=== PATIENT | female | born 1945 | race Caucasian/White ===

== ENCOUNTER 2019-12-16 19:40 | Inpatient (IN) ==
[2019-12-16] MEDS ORDERED: IOPAMIDOL 100 ML BOTTLE IV ONE (19:41)
[2019-12-16] MEDS ORDERED: 0.9 % SODIUM CHLORIDE 500 ML IV ONE (20:09)
[2019-12-16] MEDS ORDERED: ONDANSETRON 4 MG/2 ML VIAL IV ONE (20:09)
--- NOTE | 2019-12-16 20:19 | Emergency Department Note ---
General Adult HPI - General Chief complaint: Nausea/Vomiting/Diarrhea Stated complaint: nausea vomiting Time Seen by Provider: 12/16/19 20:02 Source: patient Mode of arrival: ambulatory Limitations: no limitations - History of Present Illness HPI Narrative: Patient presents emergency department for nausea, vomiting, epigastric abdominal pain that started yesterday. She reports she has had minimal diarrhea. Low- grade temperature at home of 99 orally. Epigastric discomfort is described as dull. She had a colonoscopy about a week ago which she reports was normal. No other complaints. - Related Data Home Medications Medication Instructions Recorded Confirmed Aspirin [Aspirin EC] 81 mg PO DAILY 12/16/19 12/16/19 Atorvastatin [Lipitor] 20 mg PO HS 12/16/19 12/16/19 Carvedilol [Coreg] 6.25 mg PO DAILY 12/16/19 12/16/19 Estrogens, Conjugated [Premarin] 0.625 mg PO DAILY 12/16/19 12/16/19 Furosemide [Lasix] 40 mg PO DAILY 12/16/19 12/16/19 Hydrochlorothiazide [Oretic] 25 mg PO DAILY 12/16/19 12/16/19 Insulin Aspart [Novolog] 0 unit SQ ACHS 12/16/19 12/16/19 Insulin Degludec [Tresiba] 28 unit SQ DAILY 12/16/19 12/16/19 Levothyroxine Sodium [Synthroid] 112 mcg PO DAILY 12/16/19 12/16/19 Losartan [Cozaar] 100 mg PO DAILY 12/16/19 12/16/19 Multivit-Min/Iron/Folic Acid/K 1 tab PO DAILY 12/16/19 12/16/19 [Adults Multivitamin Tablet] Omeprazole 40 mg PO DAILY 12/16/19 12/16/19 Potassium Chloride [Kdur] 20 meq PO DAILY 12/16/19 12/16/19 Allergies Allergy/AdvReac Type Severity Reaction Status Date / Time insulin lispro Allergy Swelling Verified 12/16/19 19:44 [From Humalog U-100 Insulin] amlodipine AdvReac Hypotension Verified 12/16/19 19:44 latex AdvReac Rash Verified 12/16/19 19:44 Review of Systems Review of Systems: As above, all other system reviewed and negative. Past Medical History - Past Medical History [facility] Narrative: Cataracts, coronary artery disease, hypertension, GERD, diabetes, ovarian cancer - Social History smoking status: Former smoker Physical Exam Limitations: no limitations General appearance: alert Head: atraumatic, normocephalic Eye: Present: normal appearance, PERRL, EOMI ENT: Present: normal exam, mucous membranes dry Neck: Present: normal inspection Abdominal: Present: soft, other (Epigastric tenderness palpation, no rebound or guarding.). Absent: distention Extremities: Present: normal inspection Neurological: Present: alert, oriented X3, CN II-XII intact. Absent: motor sensory deficit Psychiatric: Present: normal affect Skin: Present: warm Course Vital Signs Temperature 98.2 F 12/16/19 19:53 Pulse Rate 72 12/16/19 19:53 Respiratory Rate 16 12/16/19 19:53 Blood Pressure 206/80 12/16/19 19:53 Pulse Oximetry (%) 99 12/16/19 19:53 Temperature 98.2 F 12/16/19 19:53 Pulse Rate 72 12/16/19 19:53 Respiratory Rate 16 12/16/19 19:53 Blood Pressure 206/80 12/16/19 19:53 Pulse Oximetry (%) 99 12/16/19 19:53 Medical Decision Making - [facility] Narrative Medical decision making narrative: Emergency department course: Labs reviewed as per the electronic medical record, liver function tests and CBC are pending. CT abdomen pelvis pending at time of dictation. Patient is hydrated IV fluids, medicated with Zofran. She is not taking any of her antihypertensive medication today due to nausea and vomiting. Will provide these to her when her nausea is under control. Patient is further care is signed over to Dr. River oncoming emergency department physician. Impression: Epigastric abdominal pain, nausea and vomiting Plan: As above - Lab Data Result diagrams: 12/16/19 20:20 Lab Results 12/16/19 Range/Units 20:20 POC Hct 38.0 (36.0-48.0) % POC Sodium 131 L (133-145) mmol/L POC Potassium 3.9 (3.3-5.1) mmol/L POC Chloride 96 (96-108) mmol/L POC Total CO2 29 (22-30) mmol/L POC BUN 15 (8-23) mg/dl POC Creatinine 1.0 (0.6-1.1) mg/dl POC Glucose 118 H (70-105) mg/dL POC WB Ioniz Calcium 1.16 (1.16-1.32) mmol/L Disposition Pt seen by SENIOR OCCUPATIONAL THERAPIST/PA only: No Clinical Impression: Abdominal pain, Vomiting Disposition: Still a Patient Referrals: Jose Soria DO [Primary Care Provider] -
[2019-12-16 20:27] LABS: POC Blood Urea Nitrogen 15 mg/dl (8-23); POC CO2 29 mmol/L (22-30); POC Calcium, Ionized 1.16 mmol/L (1.16-1.32); POC Chloride 96 mmol/L (96-108); POC Glucose, Random 118 mg/dL (70-105); POC Potassium 3.9 mmol/L (3.3-5.1); POC Sodium 131 mmol/L (133-145)
[2019-12-16 21:08] LABS: Basophils # (Auto) 0.02 K/mcL (0.00-0.30); Basophils % (Auto) 0.2 % (0.0-2.0); Eosinophils # (Auto) 0.01 K/mcL (0.00-0.70); Eosinophils % (Auto) 0.1 % (0.0-7.0); Granulocytes % (Auto) 84.7 % (38.0-78.0); Hematocrit 35.8 % (34.1-44.9); Hemoglobin 11.8 g/dL (11.2-15.7); Lymphocytes # (Auto) 1.11 K/mcL (1.50-4.80); Lymphocytes % (Auto) 10.4 % (15.5-49.0); Mean Cell Volume 76.8 fL (80.0-100.0); Mean Platelet Volume 11.2 fL (7.4-10.4); Monocytes # (Auto) 0.49 K/mcL (0.10-0.90); Monocytes % (Auto) 4.6 % (1.0-12.0); Platelet Count 301 K/mcL (140-440); RBC 4.66 M/mcL (3.59-5.38); Red Cell Distribution Width 14.9 % (11.5-14.5); WBC 10.7 K/mcL (4.50-11.00)
[2019-12-16] MEDS ORDERED: CARVEDILOL 6.25 MG TABLET PO ONE (21:15)
[2019-12-16] MEDS ORDERED: LOSARTAN 50 MG TABLET PO ONE (21:15)
[2019-12-16] MEDS ORDERED: HYDROCHLOROTHIAZIDE 25 MG TABLET PO ONE (21:15)
--- NOTE | 2019-12-16 21:18 | Emergency Department Note ---
Nausea/Vomiting/Diarrhea HPI - General Chief complaint: Nausea/Vomiting/Diarrhea Stated complaint: nausea vomiting Time Seen by Provider: 12/16/19 20:02 Source: patient Mode of arrival: ambulatory Limitations: no limitations - History of Present Illness HPI Narrative: Patient is signed out to me at shift change by Dr. Moody. I reviewed his note - Related Data Home Medications Medication Instructions Recorded Confirmed Aspirin [Aspirin EC] 81 mg PO DAILY 12/16/19 12/16/19 Atorvastatin [Lipitor] 20 mg PO HS 12/16/19 12/16/19 Carvedilol [Coreg] 6.25 mg PO DAILY 12/16/19 12/16/19 Estrogens, Conjugated [Premarin] 0.625 mg PO DAILY 12/16/19 12/16/19 Furosemide [Lasix] 40 mg PO DAILY 12/16/19 12/16/19 Hydrochlorothiazide [Oretic] 25 mg PO DAILY 12/16/19 12/16/19 Insulin Aspart [Novolog] 0 unit SQ ACHS 12/16/19 12/16/19 Insulin Degludec [Tresiba] 28 unit SQ DAILY 12/16/19 12/16/19 Levothyroxine Sodium [Synthroid] 112 mcg PO DAILY 12/16/19 12/16/19 Losartan [Cozaar] 100 mg PO DAILY 12/16/19 12/16/19 Multivit-Min/Iron/Folic Acid/K 1 tab PO DAILY 12/16/19 12/16/19 [Adults Multivitamin Tablet] Omeprazole 40 mg PO DAILY 12/16/19 12/16/19 Potassium Chloride [Kdur] 20 meq PO DAILY 12/16/19 12/16/19 Allergies Allergy/AdvReac Type Severity Reaction Status Date / Time insulin lispro Allergy Swelling Verified 12/16/19 19:44 [From Humalog U-100 Insulin] amlodipine AdvReac Hypotension Verified 12/16/19 19:44 latex AdvReac Rash Verified 12/16/19 19:44 Past Medical History - Social History smoking status: Former smoker Physical Exam Limitations: no limitations General appearance: alert Course Vital Signs Temperature 98.2 F 12/16/19 19:53 Pulse Rate 72 12/16/19 19:53 Respiratory Rate 16 12/16/19 19:53 Blood Pressure 206/80 12/16/19 19:53 Pulse Oximetry (%) 99 12/16/19 19:53 Temperature 98.2 F 12/16/19 19:53 Pulse Rate 71 12/16/19 20:31 Respiratory Rate 16 12/16/19 19:53 Blood Pressure 197/87 12/16/19 21:16 Pulse Oximetry (%) 94 12/16/19 20:31 Nausea/Vomiting/Diarrhea - Lab Data Lab results reviewed: Yes I reviewed the patient's lab results. Result diagrams: 12/16/19 20:20 Lab Results 12/16/19 12/16/19 Range/Units 20:20 20:20 WBC 10.7 (4.50-11.00) K/mcL RBC 4.66 (3.59-5.38) M/mcL Hgb 11.8 (11.2-15.7) g/dL Hct 35.8 (34.1-44.9) % POC Hct 38.0 (36.0-48.0) % MCV 76.8 L (80.0-100.0) fL MCH 25.3 L (26.0-34.0) pg MCHC 33.0 (31.0-36.0) g/dL RDW 14.9 H (11.5-14.5) % Plt Count 301 (140-440) K/mcL MPV 11.2 H (7.4-10.4) fL Gran % 84.7 H (38.0-78.0) % Lymph % (Auto) 10.4 L (15.5-49.0) % [place] % (Auto) 4.6 (1.0-12.0) % Eos % (Auto) 0.1 (0.0-7.0) % Baso % (Auto) 0.2 (0.0-2.0) % Gran # 9.08 H (1.80-8.00) K/mcL Lymph # (Auto) 1.11 L (1.50-4.80) K/mcL [place] # (Auto) 0.49 (0.10-0.90) K/mcL Eos # (Auto) 0.01 (0.00-0.70) K/mcL Baso # (Auto) 0.02 (0.00-0.30) K/mcL POC Sodium 131 L (133-145) mmol/L POC Potassium 3.9 (3.3-5.1) mmol/L POC Chloride 96 (96-108) mmol/L POC Total CO2 29 (22-30) mmol/L POC BUN 15 (8-23) mg/dl POC Creatinine 1.0 (0.6-1.1) mg/dl POC Glucose 118 H (70-105) mg/dL POC WB Ioniz Calcium 1.16 (1.16-1.32) mmol/L Total Bilirubin 0.4 (0.0-1.0) mg/dL Direct Bilirubin < 0.2 (0.0-0.3) mg/dL Indirect Bilirubin 0.2 (0.2-0.8) mg/dL AST 22 (0-37) U/l ALT 16 (0-40) U/l Alkaline Phosphatase 61 (39-117) U/L Lipase 14 (7-60) U/L - Radiology Data Radiology results reviewed: Yes I reviewed the patient's radiology results. CT scan of the abdomen pelvis with contrast shows small bowel obstruction-please see direct radiology report for full detail Disposition Pt seen by WIDE AREA NETWORK ADMINISTRATOR/PA only: No Clinical Impression: Small bowel obstruction, Hypertensive urgency Summary: CT scan was pending at time of shift change. Laboratory shows mild hyponatremia and some are still pending. Noted low MCV. CT scan showed small bowel obstruction with transition point. Patient is high risk secondary to her cardiac disease and insulin-dependent diabetes. However at this time she has no shortness of breath no chest pain. Her blood pressure remains high despite treatment of pain. Discussed case with Dr. Jerzy Rice general surgeon. He agreed to consult on the patient if hospitalist would admit. I then discussed the case with Dr. Lambert, our hospitalist. He agreed to accept the patient. Recommended nicardipine drip for hypertensive urgency. NG tube is ordered. Disposition: Xfer As Inpt ([facility]) Condition: Fair Referrals: Jose Soria, [Primary Care Provider] -
[2019-12-16 21:28] LABS: ALT/SGPT 16 U/l (0-40); AST/SGOT 22 U/l (0-37); Alkaline Phosphatase 61 U/L (39-117); Bilirubin,Direct < 0.2 mg/dL (0.0-0.3); Bilirubin,Indirect 0.2 mg/dL (0.2-0.8); Bilirubin,Total 0.4 mg/dL (0.0-1.0)
--- NOTE | 2019-12-16 22:12 | Internal Med History&Physical ---
Medical - H&P: [facility] Patient information: Note initiated : 12/16/19 at 10:12 pm Service Date, if different from initiated Date: [] Patient: Rachel Kelley 74 y/o F admitted on for nausea vomiting. Chief Complaint: [] Chief complaint: Nausea vomiting diarrhea and abdominal pain History of present illness: Ms. Kelley is a 74 year old F with a history of CAD/DM type 2 insulin-dependent who was in her baseline state of health the day prior to presentation started experiencing nausea along with abdominal pain and diarrhea. She denies associated fever or headache but was unable to take anything by mouth. Symptoms are exacerbated by oral intake. She has not been able to take her regular medications over the last day and a half. Patient recently had colonoscopy on 12/[address] Ortega. Was diagnosed with diverticular disease. She has been taking high-fiber diet since and has been doing well with the onset of symptoms did not have improved. Denies prior similar episodes or change in medication or change in diet. She denies sick contacts. Initial work-up in the ER was consistent with small bowel obstruction on abdominal imaging. Additionally she was found to have blood pressure over 220. She was started on nicardipine drip. Subsequently hospitalist service consulted At the time of evaluation patient is alert and oriented. She is feeling a lot better. Denies lightheadedness dizziness headache or photophobia. She was able to endorse history as above. Review of systems A 10 point review system was performed and is negative except for ones discussed above Medical - H&P: PMH Medical history: Coronary artery disease status post stenting 2012 Hyperlipidemia Hypothyroidism Hypertension DM type II Peptic ulcer disease Diverticular disease Surgical history: Recent colonoscopy History of coronary artery stenting 2012 Pertinent family history: No significant family history Social history: No history of smoking alcoholism Lives with her [facility] - H&P: Meds Home Medications Medication Instructions Recorded Confirmed Type Aspirin [Aspirin EC] 81 mg PO DAILY 12/16/19 12/16/19 History Atorvastatin [Lipitor] 20 mg PO HS 12/16/19 12/16/19 History Carvedilol [Coreg] 6.25 mg PO DAILY 12/16/19 12/16/19 History Estrogens, Conjugated [Premarin] 0.625 mg PO DAILY 12/16/19 12/16/19 History Furosemide [Lasix] 40 mg PO DAILY 12/16/19 12/16/19 History Hydrochlorothiazide [Oretic] 25 mg PO DAILY 12/16/19 12/16/19 History Insulin Aspart [Novolog] 0 unit SQ ACHS 12/16/19 12/16/19 History Insulin Degludec [Tresiba] 28 unit SQ DAILY 12/16/19 12/16/19 History Levothyroxine Sodium [Synthroid] 112 mcg PO DAILY 12/16/19 12/16/19 History Losartan [Cozaar] 100 mg PO DAILY 12/16/19 12/16/19 History Multivit-Min/Iron/Folic Acid/K 1 tab PO DAILY 12/16/19 12/16/19 History [Adults Multivitamin Tablet] Omeprazole 40 mg PO DAILY 12/16/19 12/16/19 History Potassium Chloride [Kdur] 20 meq PO DAILY 12/16/19 12/16/19 History Allergies Allergy/AdvReac Type Severity Reaction Status Date / Time insulin lispro Allergy Intermediate Swelling Verified 12/17/19 07:13 [From Humalog U-100 Insulin] latex AdvReac Mild Rash Verified 12/17/19 07:13 Medical - H&P: Exam - Constitutional Vitals: Temp Pulse Resp BP Pulse Ox 98.2 F 76 16 197/84 96 12/16/19 19:53 12/16/19 22:01 12/16/19 19:53 12/16/19 22:01 12/16/19 22:01 General appearance: no acute distress Exam: Alert oriented Head normocephalic Oral cavity dry No ear nose discharge, NG tube Neck lymphadenopathy S1-S2 regular rhythm Nonlabored breathing nondistended nontender abdomen Lower extremity no cyanosis clubbing or joint swelling Skin no suspicious lesion Psych alert cooperative Neuro nonfocal Medical - H&P: Reslt - Labs CBC & Chem 7: 12/17/19 04:23 12/17/19 04:23 Labs: Short CBC 12/16/19 Range/Units 20:20 WBC 10.7 (4.50-11.00) K/mcL Hgb 11.8 (11.2-15.7) g/dL Hct 35.8 (34.1-44.9) % Plt Count 301 (140-440) K/mcL Liver Function 12/16/19 Range/Units 20:20 Total Bilirubin 0.4 (0.0-1.0) mg/dL Direct Bilirubin < 0.2 (0.0-0.3) mg/dL AST 22 (0-37) U/l ALT 16 (0-40) U/l Alkaline Phosphatase 61 (39-117) U/L Medical - H&P: A/P (1) Small bowel obstruction Current visit: Yes Status: Acute * Small bowel obstruction-initiate conservative management/NG tube decompression/surgery consult/antiemetics/analgesicscrystalloidsbowel rest * Hypertensive urgency with endorgan dysfunction including status change blood pressure over 220s. Secondary to inability to take scheduled home medications. Started on nicardipine drip. * Acute change mental status secondary to hypertensive urgency. Clinically improving with lower blood pressure on nicardipine. * History of coronary disease restart aspirin/statin/Coreg -restart home medications * DM type II continue basal/sliding scale insulin/CC diet once bowel obstruction resolves * Hypothyroidism hold thyroxine at this time * History of hypertension-on nicardipine drip/hold antihypertensives until able to take orally * GERD-PPI * Full code * Prophylaxis heparin Plan * Inpatient PCU admission for initiation of vasoactive medications * NG tube decompression * Conservative management bowel obstruction * Nicardipine drip * Hold oral medications until bowel obstruction resolves * PT OT * Discharge planning Critical care time spent in excess of 35 minutes on management of hypertensive urgency
[2019-12-16] MEDS ORDERED: niCARdipine 25 MG in 0.9 % SODIUM CHLORIDE 240 ML IV SCH ×2 (22:15→23:33)
[2019-12-16] MEDS ORDERED: MELATONIN 3 MG TABLET PO PRN (23:33)
[2019-12-16] MEDS ORDERED: NITROGLYCERIN 0.4 MG TAB.SUBL SL PRN (23:33)
[2019-12-16] MEDS ORDERED: ACETAMINOPHEN 650 MG/65 ML BOTTLE IV PRN (23:33)
[2019-12-16] MEDS ORDERED: ONDANSETRON 4 MG/2 ML VIAL IV PRN (23:33)
[2019-12-16] MEDS ORDERED: ONDANSETRON 4 MG ODT TABLET SL PRN (23:33)
[2019-12-16] MEDS ORDERED: ACETAMINOPHEN 325 MG TABLET PO PRN (23:33)
[2019-12-16] MEDS ORDERED: MAGNESIUM SULFATE 2 GM/50 ML BAG IV PRN (23:33)
[2019-12-16] MEDS ORDERED: HYDROmorphone 0.5 MG/0.5 ML SYRINGE IV PRN (23:33)
[2019-12-16] MEDS ORDERED: BISACODYL 10 MG SUPP.RECT PR PRN (23:33)
[2019-12-17] MEDS: 0.9 % SODIUM CHLORIDE 1,000 ML IV SCH ×2 (00:30→20:41)
[2019-12-17] MEDS: 0.9 % SODIUM CHLORIDE 10 ML SYRINGE IV SCH ×3 (05:09→20:42)
--- NOTE | 2019-12-17 05:31 | XRay Report ---
CLINICAL INFORMATION: ng tube placement confirm COMPARISON: None. FINDINGS: NG tube overlies the proximal gastric body. The stomach and multiple loops of proximal /mid small bowel are mildly dilated with decompression of the distal small bowel and colon compatible with partial small bowel obstruction. No free air, soft tissue mass or pathologic calcification. IV contrast is seen within the urinary bladder IMPRESSION: Distal partial small bowel obstruction pattern. NG tube tip overlying the proximal gastric body - suggest advancing tube 9 cm Interpreted and Authenticated by: Jarde Bone 12/17/19
[2019-12-17 06:00] LABS: Hematocrit 33.7 % (34.1-44.9); Hemoglobin 10.9 g/dL (11.2-15.7); Mean Cell Volume 78.6 fL (80.0-100.0); Mean Corpuscular HGB Conc 32.3 g/dL (31.0-36.0); Mean Platelet Volume 10.9 fL (7.4-10.4); Platelet Count 238 K/mcL (140-440); RBC 4.29 M/mcL (3.59-5.38); Red Cell Distribution Width 15.2 % (11.5-14.5); WBC 5.8 K/mcL (4.50-11.00)
[2019-12-17 06:16] LABS: ALT/SGPT 15 U/l (0-40); AST/SGOT 17 U/l (0-37); Albumin 3.4 gm/dL (3.2-5.2); Albumin/Globulin Ratio 1.1 (1.0-2.3); Alkaline Phosphatase 54 U/L (39-117); Bilirubin,Direct < 0.2 mg/dL (0.0-0.3); Bilirubin,Total 0.4 mg/dL (0.0-1.0); Blood Urea Nitrogen 9 mg/dl (8-23); Calcium 8.5 mg/dl (8.6-10.4); Carbon Dioxide 19 mmol/L (22-30); Chloride 96 mmol/L (96-108); Glomerular Filtration Rate 63; Glucose 202 mg/dL (70-105); Lactate Dehydrogenase 214 U/L (94-250); Phosphorous 2.6 mg/dL (2.7-4.5); Triglycerides 129 mg/dl (<150); Uric Acid 4.3 mg/dL (2.5-8.0)
--- NOTE | 2019-12-17 07:08 | Cat Scan Report ---
CLINICAL INFORMATION: Epigastric pain COMPARISON: None. TECHNIQUE: Following enteric contrast, 80 cc of Isovue-370 were injected intravenously, and 60 seconds later, 0.625 mm helical slices were obtained from the mid heart through the subtrochanteric regions. Following reconstruction, 2.5 mm sagittal, coronal and axial reformatted images were processed and reviewed at bone, lung and soft tissue windows. Five minutes later, 0.625 mm helical slices were obtained from the mid heart through the kidneys and viewed at soft tissue windows.The exam was performed using radiation dose optimization techniques including, but not limited to, automated exposure control, adjustment of the mA and/or kV according to patient size and use of iterative reconstruction technique. FINDINGS: Lung bases show only minimal scattered scarring the peripheral lower lobes and lingula. No effusions. Heart is normal in size and extremely heavy calcific plaque in the posterior descending and right coronary arteries with probable stents in these regions. Abdominal images show the gallbladder and bile ducts, liver, both kidneys, adrenal glands, spleen, pancreas and aorta to be normal in size configuration and attenuation without focal lesion. There is no free air or adenopathy. Pelvic images show urinary bladder demonstrates mild diffuse wall thickening. Hysterectomy/ oophorectomy changes are noted. The loops of jejunum and proximal ileum are moderately dilated to a transition point in the right false pelvis (coronal image 60, axial image 117 ). The distal small bowel and colon are relatively decompressed. There are likely adhesions or strictures in transition region. Moderate free fluid in the true and false pelvis. A few loops of the dilated small bowel demonstrating mild wall plicae circulares fold thickening. Sigmoid diverticulosis appreciated. The bone window no osseous abnormality. IMPRESSION: Partial small bowel obstruction of the mid ileum due to adhesions or stricture. Moderate free fluid in the true and false pelvis may indicate early third spacing. Mild thickening of the wall and plicae circulares folds in a proximal segment is likely an artifact of incomplete distention rather than ischemia or inflammation. Mild diffuse urinary bladder wall thickening possibly indicating cystitis. Please correlate with UA. Interpreted and Authenticated by: Jared Bone 12/17/19
[2019-12-17] MEDS ORDERED: DEXTROSE 50% 50 ML VIAL IV PRN (07:52)
[2019-12-17] MEDS ORDERED: DEXTROSE 31 GM ORAL.SUSP PO PRN (07:52)
[2019-12-17 08:06] LABS: Anisocytosis 1+ (NONE SEEN); Lymphocytes % 12 % (15-49); Monocytes % (Manual) 5 % (1-12); Platelet Estimate NORMAL (NORMAL); RBC Morphology ABNORM (NORMAL); Segmented Neutrophils % 83 % (38-78)
[2019-12-17] MEDS: MULTIVIT,THER IRON,CA,FA & MIN 1 TABLET PO SCH (08:52)
[2019-12-17] MEDS: [UNRECOGNIZED DRUG - OTHER] SC SCH (08:53)
[2019-12-17] MEDS: HEPARIN 5,000 UNIT/ML VIAL SQ SCH ×2 (08:53→20:40)
[2019-12-17] MEDS ORDERED: hydrALAZINE 20 MG/ML VIAL IV PRN (09:25)
--- NOTE | 2019-12-17 09:26 | Internal Med Progress Note ---
Medical - PN: Subj Patient information: Note initiated : 12/17/19 at 9:22 am Service Date, if different from initiated Date: [] Patient: Rachel Kelley a 74 y/o F admitted on 12/16/19 for nausea vomiting. Chief Complaint: [] Interval history: Ms. Kelley is a 74 year old F with a history of CAD/DM type 2 insulin- dependent who was in her baseline state of health the day prior to presentation started experiencing nausea along with abdominal pain and diarrhea. She denies associated fever or headache but was unable to take anything by mouth. Symptoms are exacerbated by oral intake. She has not been able to take her regular medications over the last day and a half. Patient recently had colonoscopy on 12/[address] Ortega. Was diagnosed with diverticular disease. She has been taking high-fiber diet since and has been doing well with the onset of symptoms did not have improved. Denies prior similar episodes or change in medication or change in diet. She denies sick contacts. Initial work-up in the ER was consistent with small bowel obstruction on abdominal imaging. Additionally she was found to have blood pressure over 220. She was started on nicardipine drip. Subsequently hospitalist service consulted At the time of evaluation patient is alert and oriented. She is feeling a lot better. Denies lightheadedness dizziness headache or photophobia. She was able to endorse history as above. 12/16-patient doing well. No overnight events. No concerns per staff. No nausea vomiting fever chills. On NG decompression. Improved mental status. No output. Passing flatus. Denies abdominal distention or pain. Currently n.p.o. Await surgical consult. - Constitutional Vitals: Vital Signs Temp Pulse Resp BP Pulse Ox 97.6 F 87 24 H 137/71 99 12/17/19 08:01 12/17/19 09:01 12/17/19 09:01 12/17/19 09:01 12/17/19 09:01 Period Temp Pulse Resp BP Sys/[place] Pulse Ox Last 24 Hr 97.6 F-98.3 F 69-93 11-24 137-227/63-126 93-100 Intake and Output 12/16/19 12/17/19 12/17/19 21:59 05:59 13:59 Intake Total 500 106 Output Total 650 Balance 500 -544 Weight 160 lb 160 lb Intake & Output: Intake & Output 12/16/19 12/17/19 12/17/19 21:59 05:59 13:59 Intake Total 500 106 Output Total 650 Balance 500 -544 Weight 160 lb 160 lb Intake: IV 500 106 Sodium Chloride 0.9% 500 ml @ 500 Wide Open IV BOLUS ONE Rx#: [id number] Cardene 25 MG In Sodium 106 Chloride 0.9% 240 ml @ 5 MG/HR 50 mls/hr IV ONCE RIGO Rx#: [id number] Output: Void Amount 650 General appearance: no acute distress, obese Exam: Nonlabored breathing No anxiety NG tube Nondistended abdomen Medical - PN: Obj Da - Labs CBC & Chem 7: 12/17/19 04:23 12/17/19 04:23 Labs: Abnormal Lab Results 12/17/19 12/17/19 12/16/19 04:23 04:23 20:20 Hgb 10.9 L Hct 33.7 L MCV 78.6 L MCH 25.4 L RDW 15.2 H MPV 10.9 H Gran % Lymph % (Auto) Gran # Lymph # (Auto) Seg Neutrophils % 83 H Lymphocytes % 12 L RBC Morphology Abnorm A Anisocytosis 1+ A POC Sodium 131 L Sodium 128 L Carbon Dioxide 19 L Glucose 202 H POC Glucose 118 H Calcium 8.5 L Phosphorus 2.6 L Magnesium 1.5 L 12/16/19 20:20 Hgb Hct MCV 76.8 L MCH 25.3 L RDW 14.9 H MPV 11.2 H Gran % 84.7 H Lymph % (Auto) 10.4 L Gran # 9.08 H Lymph # (Auto) 1.11 L Seg Neutrophils % Lymphocytes % RBC Morphology Anisocytosis POC Sodium Sodium Carbon Dioxide Glucose POC Glucose Calcium Phosphorus Magnesium Meds: Medications Acetaminophen (Tylenol) 650 mg PO Q4-6HP PRN; Protocol PRN Reason: Per Pain Protocol/Fever > 101 Bisacodyl (Dulcolax) 10 mg MS Q2-3DAYS PRN PRN Reason: Constipation Dextrose (Dextrose 50%) 0 ml IV UD PRN PRN Reason: Hypoglycemia Diagnostic Test (Pha) (Accu-Chek) 1 each FS ACHS RIGO Last Admin: 12/17/19 08:00 Dose: 1 each Documented by: Glucose (Insta-Glucose) 15 gm PO PRN PRN PRN Reason: Hypoglycemia Heparin Sodium (Porcine) (Heparin) 5,000 unit SQ Q12 [facility] Last Admin: 12/17/19 08:53 Dose: 5,000 unit Documented by: Hydromorphone HCl (Dilaudid) 0 mg IV Q4HP PRN; Protocol PRN Reason: Per Pain Protocol Sodium Chloride (Sodium Chloride 0.9%) 1,000 mls @ 50 mls/hr IV .Q20H [facility] Stop: 12/19/19 11:32 Last Admin: 12/17/19 00:30 Dose: 50 mls/hr Documented by: Acetaminophen (Ofirmev) 650 mg in 65 mls @ 130 mls/hr IV Q6HP PRN; Protocol PRN Reason: Per Pain Protocol/Fever > 101 Magnesium Sulfate (Magnesium Sulfate) 2 gm in 50 mls @ 50 mls/hr IV UD PRN PRN Reason: MG = or < 1.7 Last Admin: 12/17/19 09:07 Dose: 50 mls/hr Documented by: Nicardipine HCl 25 mg/ Sodium (Chloride) 250 mls @ 50 mls/hr IV ONCE [facility]; Protocol Last Titration: 12/17/19 04:35 Dose: 2 mg/hr, 20 mls/hr Documented by: Iron Carb/Multivit/[place]/Folic Acid (Multivitamin W/Minerals) 1 tab PO DAILY [facility] Last Admin: 12/17/19 08:52 Dose: Not Given Documented by: Melatonin (Melatonin 3mg Tablet) 3 mg PO HSP PRN PRN Reason: Insomnia Nitroglycerin (Nitrostat) 0.4 mg SL Q5M PRN PRN Reason: Chest Pain Ondansetron HCl (Zofran Odt) 4 mg SL Q4-6HP PRN; Protocol PRN Reason: Nausea And Vomiting Ondansetron HCl (Zofran) 4 mg IV Q4-6HP PRN; Protocol PRN Reason: Nausea And Vomiting Insulin Degludec [ (Tresiba] Insulin) 0 dose SC DAILY [facility] Last Admin: 12/17/19 08:53 Dose: 18 dose Documented by: Insulin Aspart [ (Novolog] Vial) 0 dose SC ACHS [facility] Senna/Docusate Sodium (Senna Plus Tablet) 1 tab PO [facility] Sodium Chloride (Saline Flush) 10 ml IV Q8 [facility] Last Admin: 12/17/19 05:09 Dose: Not Given Documented by: Medical - PN: A/P - Time Spent With Patient Total time spent is greater than 50% in coordination of care (as documented) at patient's floor/unit and/or counseling patient: 25 - 35 minutes (1) Small bowel obstruction Status: Acute Assessment and plan: * Small bowel obstruction-clinically improved with NG decompression. No significant output. Passing flatus. Await surgery consult. Continue antiemetics/analgesicscrystalloidsbowel rest * Hypertensive urgency with endorgan dysfunction -improved on nicardipine. Currently turned off * Acute change mental status secondary to hypertensive urgency. Clinically back at baseline with normalization of blood pressures * History of coronary disease stable. Start aspirin/statin/Coreg once able to take orally * DM type II continue basal/sliding scale insulin/CC diet once bowel obstruction resolves * Hypothyroidism hold thyroxine at this time * History of hypertension-off nicardipine drip/held antihypertensives until able to take orally. Use as needed hydralazine * GERD-PPI * Full code * Prophylaxis heparin Plan * Await surgery consult * Bowel rest/NG decompression/crystalloids * Hold oral medications until bowel obstruction resolves * PT OT * Discharge planning Current Visit: Yes
[2019-12-17] MEDS ORDERED: niCARdipine 25 MG in 0.9 % SODIUM CHLORIDE 240 ML IV PRN (10:00)
[2019-12-17] MEDS ORDERED: INSULIN LISPRO 1 UNIT/0.01 ML UNIT SQ SCH (11:30)
[2019-12-17] MEDS: INSULIN ASPART SC SCH ×3 (11:42→20:41)
--- NOTE | 2019-12-17 16:22 | General Surgery Consult Note ---
History of Present Illness Patient information: Note initiated : 12/17/19 at 4:15 pm Service Date, if different from initiated Date: [] Patient: Rachel Kelley 74 y/o F admitted on 12/16/19 for nausea vomiting. Chief Complaint: [] Reason for consult: abdominal pain Requesting physician: Adin Paz History of present illness: 74-year-old female admitted with presumed partial small bowel obstruction. The patient gives a history of having colonoscopy on June of last week. That procedure was normal except for diverticulosis. She felt normal from the time of the colonoscopy until Sunday evening. On Sunday morning she started having gas pains. She states that she had a temperature elevation to 99.6 and she had nausea and vomiting with emesis 10. Her emesis consisted of the clear liquids that she had taken. She did not have any bilious emesis. She states that she had 2 diarrheal stools later on once Sunday and she took some Imodium liquid. It is unknown whether or not this contributed to her symptoms that she had on Sunday. Assess the cramps continued she finally came to the emergency room last evening and was admitted. Abdominal x-ray shows dilated loops of small bowel with decompressed colon. She has continued to have flatus since admission. She has been treated with nasogastric decompression but has had essentially no output. Patient states that she feels much better and she is having frequent flatus.her white blood count is normal and the patient has been afebrile Review of Systems - Constitutional fever(s), weight gain - EENT Nose, mouth and throat: no dizziness, no headache(s), no hoarseness - Cardiovascular no chest pain at rest, no chest pain with activity, no dyspnea on exertion, no palpatations, no rapid heart rate - Respiratory no cough, no wheezing, no chest congestion - Gastrointestinal abdominal pain, bloating, nausea, vomiting - Genitourinary Genitourinary: no urinary hesitancy, no urinary urgency - Musculoskeletal no arthralgias, no back pain, no joint swelling - Integumentary no new lesions, no non-healing lesions, no pruritus, no rash - Neurological no dizziness, no headache(s), no syncope, no weakness - Psychiatric no anxiety, no depression - Endocrine no fatigue - Hematologic/Lymphatic no easy bleeding, no easy bruising, no lymphadenopathy - Allergic/Immunologic no tongue swelling, no throat swelling, no uticaria, no wheezing, no lip swelling Past History Past medical history: Insulin-dependent diabetes mellitus Coronary artery disease status post stents 9 in 2012 History of cervical cancer Past surgical history: Cataract and retinal surgery Wer[place] hysterectomy for cervical cancer with follow-up radiation therapy Past family history: Father age 73 due to pancreatic cancer Mother age 91 due to coronary artery disease 1 sibling with diabetes mellitus Past social history: Denies alcohol use Former smoker Denies drug use Medications and Allergies Home Medications Medication Instructions Recorded Confirmed Type Aspirin [Aspirin EC] 81 mg PO DAILY 12/16/19 12/16/19 History Atorvastatin [Lipitor] 20 mg PO HS 12/16/19 12/16/19 History Carvedilol [Coreg] 6.25 mg PO DAILY 12/16/19 12/16/19 History Estrogens, Conjugated [Premarin] 0.625 mg PO DAILY 12/16/19 12/16/19 History Furosemide [Lasix] 40 mg PO DAILY 12/16/19 12/16/19 History Hydrochlorothiazide [Oretic] 25 mg PO DAILY 12/16/19 12/16/19 History Insulin Aspart [Novolog] 0 unit SQ ACHS 12/16/19 12/16/19 History Insulin Degludec [Tresiba] 28 unit SQ DAILY 12/16/19 12/16/19 History Levothyroxine Sodium [Synthroid] 112 mcg PO DAILY 12/16/19 12/16/19 History Losartan [Cozaar] 100 mg PO DAILY 12/16/19 12/16/19 History Multivit-Min/Iron/Folic Acid/K 1 tab PO DAILY 12/16/19 12/16/19 History [Adults Multivitamin Tablet] Omeprazole 40 mg PO DAILY 12/16/19 12/16/19 History Potassium Chloride [Kdur] 20 meq PO DAILY 12/16/19 12/16/19 History Allergies Allergy/AdvReac Type Severity Reaction Status Date / Time insulin lispro Allergy Intermediate Swelling Verified 12/17/19 07:13 [From Humalog U-100 Insulin] latex AdvReac Mild Rash Verified 12/17/19 07:13 Exam Temp Pulse Resp BP Pulse Ox 97.7 F 85 16 139/68 97 12/17/19 16:01 12/17/19 16:01 12/17/19 16:01 12/17/19 16:01 12/17/19 16:01 - General physical appearance well developed, well nourished, no distress - Eyes PERRL, normal ocular movement - ENT normal pinna, normal nares, normal mucosa, no hearing loss, no congestion - Head Head exam IM: Present: atraumatic, normocephalic - Neck no masses, no bruits, trachea midline, no lymphadenopathy, no venous distension - Cardiovascular Cardiovascular exam IM: Present: normal rate and rhythm - Respiratory normal expansion, normal respiratory effort, clear to percussion, clear to auscultation - Abdomen Abdomen: Present: soft, non tender, bowel sounds, distended (mild distention with good active bowel sounds; no tenderness or mass) Hernia: Present: none - Genitourinary Present: normal external genitalia - Integumentary Present: no rash, no growths, no abnormal pigmentation - Neurologic Present: normal coordination, normal sensation - Musculoskeletal Present: normal gait, normal posture - Psychiatric Present: oriented to time, oriented to person, oriented to place, speech is normal, memory intact Results - Labs 12/17/19 04:23 12/17/19 04:23 Abnormal lab results 12/16/19 12/16/19 12/17/19 Range/Units 20:20 20:20 04:23 Hgb 10.9 L (11.2-15.7) g/dL Hct 33.7 L (34.1-44.9) % MCV 76.8 L 78.6 L (80.0-100.0) fL MCH 25.3 L 25.4 L (26.0-34.0) pg RDW 14.9 H 15.2 H (11.5-14.5) % MPV 11.2 H 10.9 H (7.4-10.4) fL Gran % 84.7 H (38.0-78.0) % Lymph % (Auto) 10.4 L (15.5-49.0) % Gran # 9.08 H (1.80-8.00) K/mcL Lymph # (Auto) 1.11 L (1.50-4.80) K/mcL Seg Neutrophils % 83 H (38-78) % Lymphocytes % 12 L (15-49) % RBC Morphology Abnorm A (NORMAL) Anisocytosis 1+ A (NONE SEEN) POC Sodium 131 L (133-145) mmol/L Sodium (133-145) mmol/L Carbon Dioxide (22-30) mmol/L Glucose (70-105) mg/dL POC Glucose 118 H (70-105) mg/dL Calcium (8.6-10.4) mg/dl Phosphorus (2.7-4.5) mg/dL Magnesium (1.6-2.5) mg/dL 12/17/19 Range/Units 04:23 Hgb (11.2-15.7) g/dL Hct (34.1-44.9) % MCV (80.0-100.0) fL MCH (26.0-34.0) pg RDW (11.5-14.5) % MPV (7.4-10.4) fL Gran % (38.0-78.0) % Lymph % (Auto) (15.5-49.0) % Gran # (1.80-8.00) K/mcL Lymph # (Auto) (1.50-4.80) K/mcL Seg Neutrophils % (38-78) % Lymphocytes % (15-49) % RBC Morphology (NORMAL) Anisocytosis (NONE SEEN) POC Sodium (133-145) mmol/L Sodium 128 L (133-145) mmol/L Carbon Dioxide 19 L (22-30) mmol/L Glucose 202 H (70-105) mg/dL POC Glucose (70-105) mg/dL Calcium 8.5 L (8.6-10.4) mg/dl Phosphorus 2.6 L (2.7-4.5) mg/dL Magnesium 1.5 L (1.6-2.5) mg/dL Diabetes panel 12/16/19 12/17/19 Range/Units 20:20 04:23 Sodium 128 L (133-145) mmol/L Potassium 3.6 (3.3-5.1) mmol/L Chloride 96 (96-108) mmol/L Carbon Dioxide 19 L (22-30) mmol/L BUN 9 (8-23) mg/dl Creatinine 0.9 (0.6-1.1) mg/dl Glucose 202 H (70-105) mg/dL Calcium 8.5 L (8.6-10.4) mg/dl AST 22 17 (0-37) U/l ALT 16 15 (0-40) U/l Alkaline Phosphatase 61 54 (39-117) U/L Total Protein 6.4 (5.9-8.4) gm/dL Albumin 3.4 (3.2-5.2) gm/dL Triglycerides 129 (<150) mg/dl Calcium panel 12/17/19 Range/Units 04:23 Calcium 8.5 L (8.6-10.4) mg/dl Phosphorus 2.6 L (2.7-4.5) mg/dL Albumin 3.4 (3.2-5.2) gm/dL Pituitary panel 12/17/19 Range/Units 04:23 Sodium 128 L (133-145) mmol/L Potassium 3.6 (3.3-5.1) mmol/L Chloride 96 (96-108) mmol/L Carbon Dioxide 19 L (22-30) mmol/L BUN 9 (8-23) mg/dl Creatinine 0.9 (0.6-1.1) mg/dl Glucose 202 H (70-105) mg/dL Calcium 8.5 L (8.6-10.4) mg/dl Adrenal panel 12/16/19 12/17/19 Range/Units 20:20 04:23 Sodium 128 L (133-145) mmol/L Potassium 3.6 (3.3-5.1) mmol/L Chloride 96 (96-108) mmol/L Carbon Dioxide 19 L (22-30) mmol/L BUN 9 (8-23) mg/dl Creatinine 0.9 (0.6-1.1) mg/dl Glucose 202 H (70-105) mg/dL Calcium 8.5 L (8.6-10.4) mg/dl Total Bilirubin 0.4 0.4 (0.0-1.0) mg/dL AST 22 17 (0-37) U/l ALT 16 15 (0-40) U/l Alkaline Phosphatase 61 54 (39-117) U/L Total Protein 6.4 (5.9-8.4) gm/dL Albumin 3.4 (3.2-5.2) gm/dL All other labs normal. Assessment and Plan (1) Gastroenteritis initial symptoms have resolved Nasogastric tube is discontinued Patient started on clear liquids Will check abdominal x-rays in the morning Status: Acute (2) Adynamic ileus Status: Acute
[2019-12-17] MEDS ORDERED: SENNOSIDES/DOCUSATE SODIUM 1 TAB TABLET PO SCH (21:00)
[2019-12-18] MEDS: 0.9 % SODIUM CHLORIDE 10 ML SYRINGE IV SCH ×3 (04:42→23:34)
[2019-12-18 06:08] LABS: Hematocrit 29.6 % (34.1-44.9); Hemoglobin 9.7 g/dL (11.2-15.7); Mean Cell Volume 77.7 fL (80.0-100.0); Mean Corpuscular HGB Conc 32.8 g/dL (31.0-36.0); Mean Platelet Volume 10.7 fL (7.4-10.4); Platelet Count 238 K/mcL (140-440); RBC 3.81 M/mcL (3.59-5.38); Red Cell Distribution Width 15.7 % (11.5-14.5)
[2019-12-18 06:34] LABS: ALT/SGPT 13 U/l (0-40); AST/SGOT 14 U/l (0-37); Albumin 3.1 gm/dL (3.2-5.2); Albumin/Globulin Ratio 1.2 (1.0-2.3); Alkaline Phosphatase 49 U/L (39-117); Bilirubin,Direct < 0.2 mg/dL (0.0-0.3); Bilirubin,Total 0.4 mg/dL (0.0-1.0); Blood Urea Nitrogen 12 mg/dl (8-23); Chloride 101 mmol/L (96-108); Globulin 2.6 gm/dL (2.2-3.7); Glomerular Filtration Rate 55; Glucose 60 mg/dL (70-105); Lactate Dehydrogenase 160 U/L (94-250); Phosphorous 2.5 mg/dL (2.7-4.5); Triglycerides 191 mg/dl (<150)
[2019-12-18 06:44] LABS: Carbon Dioxide 23 mmol/L (22-30)
[2019-12-18 07:32] LABS: Eosinophils % (Manual) 1 % (0-7); Lymphocytes % 41 % (15-49); Microcytosis 1+ (NONE SEEN); Monocytes % (Manual) 13 % (1-12); Platelet Estimate NORMAL (NORMAL); RBC Morphology AN (NORMAL); Segmented Neutrophils % 45 % (38-78)
--- NOTE | 2019-12-18 07:59 | XRay Report ---
CLINICAL INFORMATION: FOLLOW -UP OF SMALL BOWEL OBSTRUCTION COMPARISON: 12/16/2019 FINDINGS: NG tube now out. Partial small bowel obstruction pattern has resolved: there are scattered air fluid levels within nondilated small bowel and gas seen within the distal small bowel and colon. No free air or soft tissue mass. IMPRESSION: Resolution of partial small bowel obstruction pattern Interpreted and Authenticated by: Jared Bone 12/18/19
[2019-12-18] MEDS: INSULIN ASPART SC SCH ×4 (08:18→21:45)
[2019-12-18] MEDS ORDERED: NEUTRA PHOS 1 PACKET PO PRN ×2 (09:27→12:22)
--- NOTE | 2019-12-18 09:29 | Internal Med Progress Note ---
Medical - PN: Subj Patient information: Note initiated : 12/18/19 at 9:26 am Service Date, if different from initiated Date: [] Patient: Rachel Kelley a 74 y/o F admitted on 12/16/19 for nausea vomiting. Chief Complaint: [] Interval history: Ms. Kelley is a 74 year old F with a history of CAD/DM type 2 insulin- dependent who was in her baseline state of health the day prior to presentation started experiencing nausea along with abdominal pain and diarrhea. She denies associated fever or headache but was unable to take anything by mouth. Symptoms are exacerbated by oral intake. She has not been able to take her regular medications over the last day and a half. Patient recently had colonoscopy on 12/[address] Ortega. Was diagnosed with diverticular disease. She has been taking high-fiber diet since and has been doing well with the onset of symptoms did not have improved. Denies prior similar episodes or change in medication or change in diet. She denies sick contacts. Initial work-up in the ER was consistent with small bowel obstruction on abdominal imaging. Additionally she was found to have blood pressure over 220. She was started on nicardipine drip. Subsequently hospitalist service consulted At the time of evaluation patient is alert and oriented. She is feeling a lot better. Denies lightheadedness dizziness headache or photophobia. She was able to endorse history as above. 12/16-patient doing well. No overnight events. No concerns per staff. No nausea vomiting fever chills. On NG decompression. Improved mental status. No output. Passing flatus. Denies abdominal distention or pain. Currently n.p.o. Await surgical consult. 12/17-patient doing a lot better. Interval imaging shows resolution of small bowel obstruction. NG tube discontinued. Started on clears per surgery. Restart home medications. Sodium improved from 1 28-1 35. Potassium at 3.2 on replacement. Systolics normalized and off nicardipine drip. Replace phosphorus. - Constitutional Vitals: Vital Signs Temp Pulse Resp BP Pulse Ox 97.0 F 73 16 145/63 97 12/18/19 08:00 12/18/19 08:00 12/18/19 08:00 12/18/19 08:00 12/18/19 08:00 Period Temp Pulse Resp BP Sys/[place] Pulse Ox Last 24 Hr 97.0 F-98.1 F 70-85 16-25 106-145/61-86 93-98 Intake and Output 12/17/19 12/18/19 12/18/19 21:59 05:59 13:59 Intake Total 240 240 Output Total 100 250 Balance 140 -10 Weight 160 lb Intake & Output: Intake & Output 12/17/19 12/18/19 12/18/19 21:59 05:59 13:59 Intake Total 240 240 Output Total 100 250 Balance 140 -10 Weight 160 lb Intake: Oral 240 240 Output: Void Amount 100 Stool 250 Other: Urine Appearance Cloudy Urine Color Bright Yellow Urine Odor Normal Stool Size Moderate Stool Color Brown Stool Consistency Liquid Watery # Voids 1 # Bowel Movements 1 # of times incontinent of 1 Bowels General appearance: no acute distress Exam: Alert oriented NG tube discontinued Nonlabored breathing No anxiety Nondistended abdomen Medical - PN: Obj Da - Labs CBC & Chem 7: 12/18/19 04:15 12/18/19 04:15 Labs: Abnormal Lab Results 12/18/19 12/18/19 12/18/19 04:15 04:15 04:15 WBC 3.0 L Hgb 9.7 L Hct 29.6 L MCV 77.7 L MCH 25.5 L RDW 15.7 H MPV 10.7 H Gran % Lymph % (Auto) Gran # Lymph # (Auto) Seg Neutrophils % Lymphocytes % Monocytes % (Manual) 13 H RBC Morphology Anisocytosis Microcytosis 1+ A ESR 29 H POC Sodium Sodium Potassium 3.2 L Carbon Dioxide Glucose 60 L POC Glucose Calcium 8.0 L Phosphorus 2.5 L Magnesium Total Protein 5.7 L Albumin 3.1 L Triglycerides 191 H 12/17/19 12/17/19 12/16/19 04:23 04:23 20:20 WBC Hgb 10.9 L Hct 33.7 L MCV 78.6 L MCH 25.4 L RDW 15.2 H MPV 10.9 H Gran % Lymph % (Auto) Gran # Lymph # (Auto) Seg Neutrophils % 83 H Lymphocytes % 12 L Monocytes % (Manual) RBC Morphology Abnorm A Anisocytosis 1+ A Microcytosis ESR POC Sodium 131 L Sodium 128 L Potassium Carbon Dioxide 19 L Glucose 202 H POC Glucose 118 H Calcium 8.5 L Phosphorus 2.6 L Magnesium 1.5 L Total Protein Albumin Triglycerides 12/16/19 20:20 WBC Hgb Hct MCV 76.8 L MCH 25.3 L RDW 14.9 H MPV 11.2 H Gran % 84.7 H Lymph % (Auto) 10.4 L Gran # 9.08 H Lymph # (Auto) 1.11 L Seg Neutrophils % Lymphocytes % Monocytes % (Manual) RBC Morphology Anisocytosis Microcytosis ESR POC Sodium Sodium Potassium Carbon Dioxide Glucose POC Glucose Calcium Phosphorus Magnesium Total Protein Albumin Triglycerides Meds: Medications Acetaminophen (Tylenol) 650 mg PO Q4-6HP PRN; Protocol PRN Reason: Per Pain Protocol/Fever > 101 Bisacodyl (Dulcolax) 10 mg FL Q2-3DAYS PRN PRN Reason: Constipation Dextrose (Dextrose 50%) 0 ml IV UD PRN PRN Reason: Hypoglycemia Diagnostic Test (Pha) (Accu-Chek) 1 each FS ACHS [facility] Last Admin: 12/18/19 08:13 Dose: 1 each Documented by: Glucose (Insta-Glucose) 15 gm PO PRN PRN PRN Reason: Hypoglycemia Heparin Sodium (Porcine) (Heparin) 5,000 unit SQ Q12 [facility] Last Admin: 12/17/19 20:40 Dose: 5,000 unit Documented by: Hydralazine HCl (Apresoline) 10 mg IV Q4-6HP PRN PRN Reason: Hypertension Hydromorphone HCl (Dilaudid) 0 mg IV Q4HP PRN; Protocol PRN Reason: Per Pain Protocol Sodium Chloride (Sodium Chloride 0.9%) 1,000 mls @ 50 mls/hr IV .Q20H [facility] Stop: 12/19/19 11:32 Last Admin: 12/17/19 20:41 Dose: Not Given Documented by: Acetaminophen (Ofirmev) 650 mg in 65 mls @ 130 mls/hr IV Q6HP PRN; Protocol PRN Reason: Per Pain Protocol/Fever > 101 Magnesium Sulfate (Magnesium Sulfate) 2 gm in 50 mls @ 50 mls/hr IV UD PRN PRN Reason: MG = or < 1.7 Last Infusion: 12/17/19 10:10 Dose: Infused Documented by: Nicardipine HCl 25 mg/ Sodium (Chloride) 250 mls @ 50 mls/hr IV Q5HP PRN; Protocol PRN Reason: Hypertension Iron Carb/Multivit/[place]/Folic Acid (Multivitamin W/Minerals) 1 tab PO DAILY [facility] Last Admin: 12/17/19 08:52 Dose: Not Given Documented by: Melatonin (Melatonin 3mg Tablet) 3 mg PO HSP PRN PRN Reason: Insomnia Nitroglycerin (Nitrostat) 0.4 mg SL Q5M PRN PRN Reason: Chest Pain Ondansetron HCl (Zofran Odt) 4 mg SL Q4-6HP PRN; Protocol PRN Reason: Nausea And Vomiting Ondansetron HCl (Zofran) 4 mg IV Q4-6HP PRN; Protocol PRN Reason: Nausea And Vomiting Insulin Degludec [ (Tresiba] Insulin) 0 dose SC DAILY [facility] Last Admin: 12/17/19 08:53 Dose: 18 dose Documented by: Insulin Aspart [ (Novolog] Vial) 0 dose SC ACHS [facility] Last Admin: 12/18/19 08:18 Dose: Not Given Documented by: Senna/Docusate Sodium (Senna Plus Tablet) 1 tab PO HS [facility] Last Admin: 12/17/19 20:42 Dose: 1 tab Documented by: Sodium Chloride (Saline Flush) 10 ml IV Q8 [facility] Last Admin: 12/18/19 04:42 Dose: 10 ml Documented by: Medical - PN: A/P - Time Spent With Patient Total time spent is greater than 50% in coordination of care (as documented) at patient's floor/unit and/or counseling patient: 25 - 35 minutes (1) Small bowel obstruction Status: Acute Assessment and plan: * Small bowel obstruction-clinically resolved, NG discontinued. On diet per surgery. * Hypertensive urgency with endorgan dysfunction -fully resolved. Off n icardipine. Restart home medications including Coreg/thiazide/losartan * Acute change mental status -clinically resolved now at baseline * Hypovolemic hyponatremia clinically resolved now at 135 * Hypokalemia start replacement * Low phosphorus on replacement * DM type II continue basal/sliding scale insulin/CC diet * Hypothyroidism restart thyroxine * GERD-PPI * Full code * Prophylaxis heparin Plan * Advance diet per surgery * Pre-existing medical condition management and home medications * Continue PT OT * Discharge planning likely in 24 hours Current Visit: Yes
[2019-12-18] MEDS: MULTIVIT,THER IRON,CA,FA & MIN 1 TABLET PO SCH (09:41)
[2019-12-18] MEDS: HEPARIN 5,000 UNIT/ML VIAL SQ SCH ×2 (09:41→20:44)
[2019-12-18] MEDS: [UNRECOGNIZED DRUG - OTHER] SC SCH (10:33)
[2019-12-18] MEDS ORDERED: POTASSIUM CHLORIDE 20 MEQ TABLET PO ONE (11:03)
[2019-12-18] MEDS ORDERED: ONDANSETRON 4 MG ODT TABLET SL PRN (12:22)
[2019-12-18] MEDS ORDERED: ACETAMINOPHEN 325 MG TABLET PO PRN (12:22)
[2019-12-18] MEDS ORDERED: ONDANSETRON 4 MG/2 ML VIAL IV PRN (12:22)
[2019-12-18] MEDS ORDERED: NITROGLYCERIN 0.4 MG TAB.SUBL SL PRN (12:22)
[2019-12-18] MEDS ORDERED: MAGNESIUM SULFATE 2 GM/50 ML BAG IV PRN (12:22)
[2019-12-18] MEDS ORDERED: 0.9 % SODIUM CHLORIDE 1,000 ML IV SCH (12:22)
[2019-12-18] MEDS ORDERED: DEXTROSE 31 GM ORAL.SUSP PO PRN (12:22)
[2019-12-18] MEDS ORDERED: BISACODYL 10 MG SUPP.RECT PR PRN (12:22)
[2019-12-18] MEDS ORDERED: hydrALAZINE 20 MG/ML VIAL IV PRN (12:22)
[2019-12-18] MEDS ORDERED: ACETAMINOPHEN 650 MG/65 ML BOTTLE IV PRN (12:22)
[2019-12-18] MEDS ORDERED: MELATONIN 3 MG TABLET PO PRN (12:22)
[2019-12-18] MEDS ORDERED: DEXTROSE 50% 50 ML VIAL IV PRN (12:22)
[2019-12-18] MEDS ORDERED: HYDROmorphone 0.5 MG/0.5 ML SYRINGE IV PRN (12:22)
--- NOTE | 2019-12-18 14:57 | General Surgery Progress Note ---
Subjective Patient reports: feels better, pain is less, tolerating liquids well, flatus, bowel movement, diarrhea, afebrile Narrative: Note initiated : 12/18/19 at 2:55 pm Service Date, if different from initiated Date: [] Patient: Rachel Kelley 74 y/o F admitted on 12/16/19 for nausea vomiting. Chief Complaint: [] Patient significantly improved. She has had multiple bowel movements. Her pain is totally controlled. She denies nausea. Objective Temp Pulse Resp BP Pulse Ox 97.3 F 74 14 157/73 96 12/18/19 11:34 12/18/19 11:34 12/18/19 11:34 12/18/19 11:34 12/18/19 11:34 - Additional Data Intake & Output - Last 24 hours: Intake & Output 12/16/19 12/17/19 12/18/19 12/19/19 05:59 05:59 05:59 05:59 Intake Total 606 973 720 Output Total 650 800 300 Balance -44 173 420 Weight 160 lb 160 lb 160 lb - General physical appearance well developed, well nourished, no distress - Eyes PERRL, normal ocular movement - ENT normal pinna, normal nares, normal mucosa, no hearing loss, no congestion - Neck no masses, no bruits, trachea midline, no lymphadenopathy, no venous distension - Respiratory normal expansion, normal respiratory effort, clear to auscultation - Cardiovascular Cardiovascular exam: Present: normal rate and rhythm, RRR, +S1, +S2. Absent: JVD - Abdomen soft, non tender, bowel sounds (present), surgical scars (none), masses (none) - Integumentary no rash, no growths, no abnormal pigmentation - Neurologic normal coordination, normal sensation - Musculoskeletal normal gait, normal posture - Psychiatric oriented to time, oriented to person, oriented to place, speech is normal, me anup intact - Labs 12/18/19 04:15 12/18/19 04:15 Diabetes panel 12/18/19 Range/Units 04:15 Sodium 135 (133-145) mmol/L Potassium 3.2 L (3.3-5.1) mmol/L Chloride 101 (96-108) mmol/L Carbon Dioxide 23 (22-30) mmol/L BUN 12 (8-23) mg/dl Creatinine 1.0 (0.6-1.1) mg/dl Glucose 60 L (70-105) mg/dL Calcium 8.0 L (8.6-10.4) mg/dl AST 14 (0-37) U/l ALT 13 (0-40) U/l Alkaline Phosphatase 49 (39-117) U/L Total Protein 5.7 L (5.9-8.4) gm/dL Albumin 3.1 L (3.2-5.2) gm/dL Triglycerides 191 H (<150) mg/dl Calcium panel 12/18/19 Range/Units 04:15 Calcium 8.0 L (8.6-10.4) mg/dl Phosphorus 2.5 L (2.7-4.5) mg/dL Albumin 3.1 L (3.2-5.2) gm/dL Pituitary panel 12/18/19 Range/Units 04:15 Sodium 135 (133-145) mmol/L Potassium 3.2 L (3.3-5.1) mmol/L Chloride 101 (96-108) mmol/L Carbon Dioxide 23 (22-30) mmol/L BUN 12 (8-23) mg/dl Creatinine 1.0 (0.6-1.1) mg/dl Glucose 60 L (70-105) mg/dL Calcium 8.0 L (8.6-10.4) mg/dl Adrenal panel 12/18/19 Range/Units 04:15 Sodium 135 (133-145) mmol/L Potassium 3.2 L (3.3-5.1) mmol/L Chloride 101 (96-108) mmol/L Carbon Dioxide 23 (22-30) mmol/L BUN 12 (8-23) mg/dl Creatinine 1.0 (0.6-1.1) mg/dl Glucose 60 L (70-105) mg/dL Calcium 8.0 L (8.6-10.4) mg/dl Total Bilirubin 0.4 (0.0-1.0) mg/dL AST 14 (0-37) U/l ALT 13 (0-40) U/l Alkaline Phosphatase 49 (39-117) U/L Total Protein 5.7 L (5.9-8.4) gm/dL Albumin 3.1 L (3.2-5.2) gm/dL Assessment and Plan (1) Gastroenteritis Status: Acute Assessment and plan: Advanced to GI soft diet Saline lock IV Replaced potassium and phosphorus Current Visit: Yes (2) Adynamic ileus Status: Resolved Current Visit: Yes - Time Spent With Patient Total time spent is greater than 50% in coordination of care (as documented) at patient's floor/unit and/or counseling patient:
[2019-12-18] MEDS ORDERED: ATORVASTATIN 20 MG TABLET PO SCH ×2 (21:00)
[2019-12-18] MEDS ORDERED: INSULIN DEGLUDEC 28 UNIT SC SCH (21:00)
[2019-12-18] MEDS ORDERED: [UNRECOGNIZED DRUG - OTHER] SC SCH (21:00)
[2019-12-18] MEDS ORDERED: SENNOSIDES/DOCUSATE SODIUM 1 TAB TABLET PO SCH (21:00)
[2019-12-19] MEDS: 0.9 % SODIUM CHLORIDE 10 ML SYRINGE IV SCH (06:23)
[2019-12-19 06:33] LABS: Hemoglobin 10.5 g/dL (11.2-15.7); Mean Cell Volume 79.1 fL (80.0-100.0); Mean Corpuscular HGB Conc 31.8 g/dL (31.0-36.0); Mean Platelet Volume 10.6 fL (7.4-10.4); Platelet Count 273 K/mcL (140-440); RBC 4.17 M/mcL (3.59-5.38); Red Cell Distribution Width 15.7 % (11.5-14.5); WBC 3.3 K/mcL (4.50-11.00)
[2019-12-19] MEDS: INSULIN ASPART SC SCH ×2 (07:01→12:15)
[2019-12-19 07:18] LABS: ALT/SGPT 14 U/l (0-40); AST/SGOT 16 U/l (0-37); Albumin 3.8 gm/dL (3.2-5.2); Albumin/Globulin Ratio 1.4 (1.0-2.3); Alkaline Phosphatase 59 U/L (39-117); Bilirubin,Direct < 0.2 mg/dL (0.0-0.3); Bilirubin,Total 0.3 mg/dL (0.0-1.0); Blood Urea Nitrogen 9 mg/dl (8-23); Calcium 8.8 mg/dl (8.6-10.4); Carbon Dioxide 20 mmol/L (22-30); Chloride 103 mmol/L (96-108); Globulin 2.8 gm/dL (2.2-3.7); Glomerular Filtration Rate 55; Glucose 103 mg/dL (70-105); Lactate Dehydrogenase 212 U/L (94-250); Phosphorous 2.5 mg/dL (2.7-4.5); Triglycerides 188 mg/dl (<150)
[2019-12-19] MEDS ORDERED: LEVOTHYROXINE SODIUM 112 MCG TABLET PO SCH ×2 (07:30)
[2019-12-19] MEDS ORDERED: OMEPRAZOLE 20 MG CAPSULE PO SCH ×2 (07:30)
[2019-12-19 07:56] LABS: Eosinophils % (Manual) 2 % (0-7); Lymphocytes % 29 % (15-49); Microcytosis FEW (NONE SEEN); Monocytes % (Manual) 13 % (1-12); Platelet Estimate NORMAL (NORMAL); RBC Morphology ABNORM (NORMAL); Segmented Neutrophils % 56 % (38-78)
[2019-12-19] MEDS ORDERED: POTASSIUM CHLORIDE 20 MEQ TABLET PO SCH ×2 (08:00)
[2019-12-19] MEDS ORDERED: CARVEDILOL 6.25 MG TABLET PO SCH ×2 (08:00→09:00)
[2019-12-19] MEDS: HEPARIN 5,000 UNIT/ML VIAL SQ SCH (08:24)
[2019-12-19] MEDS ORDERED: LOSARTAN 50 MG TABLET PO SCH ×2 (09:00)
[2019-12-19] MEDS ORDERED: FUROSEMIDE 40 MG TABLET PO SCH ×2 (09:00)
[2019-12-19] MEDS ORDERED: MULTIVIT MIN PO SCH (09:00)
[2019-12-19] MEDS ORDERED: MULTIVIT,THER IRON,CA,FA & MIN 1 TABLET PO SCH (09:00)
[2019-12-19] MEDS ORDERED: IRON PO SCH (09:00)
[2019-12-19] MEDS ORDERED: FOLIC ACID PO SCH (09:00)
[2019-12-19] MEDS ORDERED: ESTROGENS, CONJUGATED 0.625 MG TABLET PO SCH ×2 (09:00)
[2019-12-19] MEDS ORDERED: HYDROCHLOROTHIAZIDE 25 MG TABLET PO SCH ×2 (09:00)
[2019-12-19] MEDS ORDERED: ASPIRIN 81 MG TAB.CHEW PO SCH ×2 (09:00)
[2019-12-19] MEDS ORDERED: [UNRECOGNIZED DRUG - OTHER] PO SCH (09:00)
--- NOTE | 2019-12-19 09:13 | Discharge Summary ---
Medical - DS: Prov Patient information: Note initiated : 12/19/19 at 9:11 am Service Date, if different from initiated Date: [] Patient: Rachel Kelley 74 y/o F admitted on 12/16/19 for nausea vomiting. Chief Complaint: [] Date of admission: 12/16/19 23:26 Discharge date: 12/19/19 Primary care physician: Jose Soria Consults: 12/16/19 Consult to Physician [CONS] Stat Comment: Consulting Provider: Adin Paz Reason For Exam: Physician to Consult Consult to Physician [CONS] Stat Comment: Consulting Provider: Theo Rice Reason For Exam: Physician to Consult Medical - DS: Meds - Discharge Medications Active and Home Medications: Home Medications Aspirin [Aspirin EC] 81 mg PO DAILY 12/16/19 [History Confirmed 12/16/19 Last Taken Unknown] Atorvastatin [Lipitor] 20 mg PO HS 12/16/19 [History Confirmed 12/16/19 Last Taken Unknown] Carvedilol [Coreg] 6.25 mg PO DAILY 12/16/19 [History Confirmed 12/16/19 Last Taken Unknown] Estrogens, Conjugated [Premarin] 0.625 mg PO DAILY 12/16/19 [History Confirmed 12/16/19 Last Taken Unknown] Furosemide [Lasix] 40 mg PO DAILY 12/16/19 [History Confirmed 12/16/19 Last Taken Unknown] Hydrochlorothiazide [Oretic] 25 mg PO DAILY 12/16/19 [History Confirmed 12/16/19 Last Taken Unknown] Insulin Aspart [Novolog] 0 unit SQ [facility] 12/16/19 [History Confirmed 12/16/19 Last Taken Unknown] Insulin Degludec [Tresiba] 28 unit SQ [facility] 12/16/19 [History Confirmed 12/18/19 Last Taken Unknown] Levothyroxine Sodium [Synthroid] 112 mcg PO DAILY 12/16/19 [History Confirmed 12/16/19 Last Taken Unknown] Losartan [Cozaar] 100 mg PO DAILY 12/16/19 [History Confirmed 12/16/19 Last Taken Unknown] Multivit-Min/Iron/Folic Acid/K [Adults Multivitamin Tablet] 1 tab PO DAILY 12/16/19 [History Confirmed 12/16/19 Last Taken Unknown] Omeprazole 40 mg PO DAILY 12/16/19 [History Confirmed 12/16/19 Last Taken Unknown] Potassium Chloride [Kdur] 20 meq PO DAILY 12/16/19 [History Confirmed 12/16/19 Last Taken Unknown] Medical - DS: Hosp Hospital Course: Discharge diagnosis * Small bowel obstruction-clinically resolved, NG discontinued. Tolerating diet * Hypertensive urgency with endorgan dysfunction -fully resolved. Off nicardipine. Now blood pressure well controlled on home dose Coreg/thiazide/losartan * Acute change mental status -clinically resolved now at baseline * Hypovolemic hyponatremia clinically resolved now at 135 * Hypokalemia resolved with replacement * Low phosphorus improved on replacement * DM type II continue basal/sliding scale insulin/CC diet * Hypothyroidism restart thyroxine * GERD-PPI Brief hospital course Ms. Kelley is a 74 year old F with a history of CAD/DM type 2 insulin- dependent who was in her baseline state of health the day prior to presentation started experiencing nausea along with abdominal pain and diarrhea. She denies associated fever or headache but was unable to take anything by mouth. Symptoms are exacerbated by oral intake. She has not been able to take her regular medications over the last day and a half. Patient recently had colonoscopy on 12/[address] Ortega. Was diagnosed with diverticular disease. She has been taking high-fiber diet since and has been doing well with the onset of symptoms did not have improved. Denies prior similar episodes or change in medication or change in diet. She denies sick contacts. Initial work-up in the ER was consistent with small bowel obstruction on abdominal imaging. Additionally she was found to have blood pressure over 220. She was started on nicardipine drip. Subsequently hospitalist service consulted At the time of evaluation patient is alert and oriented. She is feeling a lot better. Denies lightheadedness dizziness headache or photophobia. She was able to endorse history as above. 12/16-patient doing well. No overnight events. No concerns per staff. No nausea vomiting fever chills. On NG decompression. Improved mental status. No output. Passing flatus. Denies abdominal distention or pain. Currently n.p.o. Await surgical consult. 12/17-patient doing a lot better. Interval imaging shows resolution of small bowel obstruction. NG tube discontinued. Started on clears per surgery. Restart home medications. Sodium improved from 1 28-1 35. Potassium at 3.2 on replacement. Systolics normalized and off nicardipine drip. Replace phosphorus. 12/18-patient doing well. No overnight events. Tolerating diet. Denies abdominal pain nausea vomiting. Feels at baseline. Requesting discharge. Recommend outpatient follow-up with PCP. Discharge diagnosis: . - Time Spent with Patient Total time spent providing and/or coordinating discharge services: Greater than 30 minutes Medical - DS: Exam - Constitutional Vitals: Vital Signs Temp Pulse Resp BP BP Pulse Ox 12/19/19 07:58 97.5 F 83 16 154/69 98 12/19/19 02:40 97.7 F 81 18 150/73 96 12/18/19 22:45 97.9 F 77 20 140/72 96 12/18/19 19:05 97.8 F 78 16 144/63 97 12/18/19 16:00 97.5 F 72 16 166/75 98 12/18/19 11:34 97.3 F 74 14 157/73 96 Intake and Output 12/18/19 12/19/19 12/19/19 21:59 05:59 13:59 Intake Total 4645 205 4283 Output Total 300 1000 400 Balance 900 -614 600 Intake: Oral 0378 374 2892 Output: Void Amount 300 900 400 Urine/Stool Mix 100 Other: Meal Dinner Breakfast Percent of Meal Consumed 100% 100% Feeding Ability Independent Urine Color Pale Straw Stool Size Large Small Stool Color Brown Brown Stool Consistency Soft Soft Loose Loose # Voids 1 Weight 163 lb 6.4 oz Medical - DS: Data Labs on day of discharge: Labs from last 24 hours 12/19/19 12/19/19 12/18/19 05:05 05:05 04:15 WBC 3.3 L RBC 4.17 Hgb 10.5 L Hct 33.0 L MCV 79.1 L MCH 25.2 L MCHC 31.8 RDW 15.7 H Plt Count 273 MPV 10.6 H Total Counted 100 Seg Neutrophils % 56 Band Neutrophils % Not Reportable Lymphocytes % 29 Monocytes % (Manual) 13 H Eosinophils % (Manual) 2 Platelet Estimate Normal RBC Morphology Abnorm A Microcytosis Few A ESR 29 H Sodium 138 Potassium 4.3 Chloride 103 Carbon Dioxide 20 L Anion Gap 15.0 BUN 9 Creatinine 1.0 GFR Calculation 55 Glucose 103 Uric Acid 5.0 Calcium 8.8 Phosphorus 2.5 L Magnesium 2.1 Total Bilirubin 0.3 Direct Bilirubin < 0.2 GGT 10 AST 16 ALT 14 Alkaline Phosphatase 59 Lactate Dehydrogenase 212 Total Protein 6.6 Albumin 3.8 Globulin 2.8 Albumin/Globulin Ratio 1.4 Triglycerides 188 H Medical - DS: A/P - Patient/Caregiver Discharge Instructions Activity: increase activity as tolerated Diet: Regular Diet Additional Instructions: Follow-up primary care physician in 5 to 7 days Return to ER if worsening dull pain nausea vomiting noted - Problem Maintenance (1) Small bowel obstruction Status: Acute - Follow up Plan Follow up with: Jose Soria DO [Primary Care Provider] - 12/29/19 1:30 pm (Please arrive at 1:15) Disposition: Home, Self-Care Care Plan Goals: This discharge packet is provided to you to help keep you informed about your care. We want to ensure you get everything you need when you go home. You will also be receiving a call from us in a few days to follow up with you and see how you are doing since your discharge. This gives us a chance to listen to any concerns you maybe experiencing since you were discharged or any additional needs you may have, as well as providing us feedback on your care experience. We strive to always provide excellent care and thank you for your feedback and for choosing [facility]. Prognosis: Fair Rehab Potential: Fair I certify that the patient requires SNF services: No Overall status at discharge: patient is progressing back to baseline
== END 2019-12-19 12:20 | disposition home or self-care (01) | DRG 389 ==
LOC: ED 19:40 → ICU 23:24 → MEDSUR 12-18 14:10
PROVIDERS: ADMIT Internal Medicine; ATTEND Internal Medicine

== ENCOUNTER 2025-04-30 18:41 | Inpatient (IN) ==
[2025-04-30 20:03] LABS: Basophils # (Auto) 0.01 K/mcL (0.00-0.30); Basophils % (Auto) 0.3 % (0.0-2.0); Eosinophils # (Auto) 0.01 K/mcL (0.00-0.70); Eosinophils % (Auto) 0.3 % (0.0-7.0); Hematocrit 34.1 % (34.1-44.9); Hemoglobin 11.8 g/dL (11.2-15.7); Lymphocytes # (Auto) 1.16 K/mcL (1.50-4.80); Lymphocytes % (Auto) 31.2 % (15.5-49.0); Mean Corpuscular HGB Conc 34.6 g/dL (31.0-36.0); Monocytes # (Auto) 0.40 K/mcL (0.10-0.90); Monocytes % (Auto) 10.8 % (1.0-12.0); Neutrophils % (Auto) 57.1 % (38.0-78.0); Platelet Count 191 K/mcL (140-440); RBC 4.03 M/mcL (3.59-5.38); WBC 3.7 K/mcL (4.5-11.0)
[2025-04-30 21:16] LABS: Thyroid Stimulating Hormone 0.26 uIU/mL (0.27-5.01)
[2025-04-30 21:31] LABS: ALT/SGPT 19 U/L (<40); AST/SGOT 29 U/L (<32); Albumin 4.0 gm/dL (3.2-5.2); Albumin/Globulin Ratio 1.4 (1.0-2.3); Alkaline Phosphatase 55 U/L (39-117); Anion Gap 11.0 (8.0-16.0); Bilirubin,Total 0.6 mg/dL (0.1-1.0); Blood Urea Nitrogen 17 mg/dL (8-23); Calcium 8.4 mg/dL (8.6-10.4); Carbon Dioxide 18 mmol/L (22-30); Chloride 92 mmol/L (96-108); Globulin 2.8 gm/dL (2.2-3.7); Glucose 138 mg/dL (70-105); Potassium 4.9 mmol/L (3.3-5.1); Sodium 121 mmol/L (133-145)
[2025-04-30 22:01] LABS: Bacteria,Urine Many /hpf (0); Bilirubin,Urine Negative (Negative); Color,Urine Yellow; Glucose,Urine (UA) Negative (Negative); Ketones,Urine Negative (Negative); Leukocyte Esterase,Urine Negative /uL (Negative); PH,Urine 7.0 (5.0-9.0); Protein,Urine Negative (Negative); Specific Gravity,Urine 1.015 (1.000-1.035); Urobilinogen,Urine Normal
[2025-04-30] MEDS ORDERED: ACETAMINOPHEN 325 MG TABLET PO PRN (22:06)
[2025-04-30] MEDS ORDERED: SENNOSIDES 1 TABLET PO PRN (22:06)
[2025-04-30] MEDS ORDERED: MAGNESIUM SULFATE 2 GM/50 ML BAG IV PRN (22:06)
[2025-04-30] MEDS ORDERED: POTASSIUM CHLORIDE 20 MEQ TABLET PO PRN ×2 (22:06)
[2025-04-30] MEDS ORDERED: METOCLOPRAMIDE 10 MG/2 ML VIAL IV PRN (22:06)
[2025-04-30] MEDS ORDERED: POTASSIUM CHLORIDE 40 MEQ in DEXTROSE 5% IN WATER 500 ML IV PRN (22:06)
[2025-04-30] MEDS ORDERED: DEXTROSE 50% 50 ML VIAL IV PRN (22:06)
[2025-04-30] MEDS ORDERED: IPRATROPIUM/ALBUTEROL 3 ML AMPUL.NEB NEB PRN (22:06)
[2025-04-30] MEDS ORDERED: POLYETHYLENE GLYCOL 3350 17 GM PACKET PO PRN (22:06)
[2025-04-30] MEDS ORDERED: DEXTROSE 31 GM ORAL.SUSP PO PRN (22:06)
[2025-05-01] MEDS: LABETALOL HCL 20 MG/4 ML VIAL IV PRN (00:17)
[2025-05-01] MEDS: SODIUM ZIRCONIUM CYCLOSILICATE 10 GM PACKET PO ONE (00:18)
[2025-05-01] MEDS: DOCUSATE SODIUM 100 MG CAPSULE PO SCH (00:24)
[2025-05-01] MEDS: 0.9 % SODIUM CHLORIDE 10 ML SYRINGE IV SCH (00:25)
[2025-05-01] MEDS: INSULIN LISPRO 1 UNIT/0.01 ML UNIT SQ SCH (00:27)
[2025-05-01] MEDS: SODIUM ZIRCONIUM CYCLOSILICATE 10 GM PACKET ONE (00:28)
[2025-05-01] MEDS: hydrALAZINE 20 MG/ML VIAL IV PRN (04:29)
[2025-05-01] MEDS: ONDANSETRON 4 MG/2 ML VIAL IV PRN (07:14)
[2025-05-01 07:18] LABS: Basophils # (Auto) 0.01 K/mcL (0.00-0.30); Basophils % (Auto) 0.2 % (0.0-2.0); Eosinophils # (Auto) 0.01 K/mcL (0.00-0.70); Eosinophils % (Auto) 0.2 % (0.0-7.0); Hematocrit 34.1 % (34.1-44.9); Hemoglobin 12.1 g/dL (11.2-15.7); Lymphocytes # (Auto) 1.06 K/mcL (1.50-4.80); Lymphocytes % (Auto) 25.9 % (15.5-49.0); Mean Corpuscular HGB Conc 35.5 g/dL (31.0-36.0); Monocytes # (Auto) 0.40 K/mcL (0.10-0.90); Monocytes % (Auto) 9.8 % (1.0-12.0); Neutrophils % (Auto) 63.7 % (38.0-78.0); Platelet Count 210 K/mcL (140-440); RBC 4.11 M/mcL (3.59-5.38); WBC 4.1 K/mcL (4.5-11.0)
[2025-05-01] MEDS: LEVOTHYROXINE SODIUM 112 MCG TABLET PO SCH (08:11)
[2025-05-01] MEDS: OMEPRAZOLE 20 MG CAPSULE PO SCH (08:12)
[2025-05-01] MEDS: CARVEDILOL 12.5 MG TABLET PO SCH (08:12)
[2025-05-01] MEDS: LOSARTAN 50 MG TABLET PO SCH (08:12)
[2025-05-01 08:13] LABS: ALT/SGPT 18 U/L (<40); AST/SGOT 25 U/L (<32); Albumin 4.0 gm/dL (3.2-5.2); Albumin/Globulin Ratio 1.4 (1.0-2.3); Alkaline Phosphatase 55 U/L (39-117); Anion Gap 11.0 (8.0-16.0); Bilirubin,Direct 0.3 mg/dL (<0.3); Bilirubin,Total 0.7 mg/dL (0.1-1.0); Blood Urea Nitrogen 16 mg/dL (8-23); Calcium 8.8 mg/dL (8.6-10.4); Carbon Dioxide 19 mmol/L (22-30); Chloride 93 mmol/L (96-108); Globulin 2.9 gm/dL (2.2-3.7); Glucose 166 mg/dL (70-105); Phosphorous 2.1 mg/dL (2.5-4.5); Potassium 4.1 mmol/L (3.3-5.1); Sodium 123 mmol/L (133-145); Triglycerides 210 mg/dL (<150); Uric Acid 5.1 mg/dL (2.5-8.0)
[2025-05-01] MEDS ORDERED: RITONAVIR PO SCH (09:00)
[2025-05-01] MEDS ORDERED: NIRMATRELVIR PO SCH (09:00)
[2025-05-01] MEDS: SODIUM CHLORIDE 1 GM TABLET PO SCH (09:48)
[2025-05-01] MEDS: RITONAVIR PO SCH (09:49)
[2025-05-01] MEDS: NIRMATRELVIR PO SCH (09:49)
[2025-05-01] MEDS: INSULIN GLARGINE, HUMAN 1 UNIT/0.01 ML SQ SCH (10:04)
[2025-05-01] MEDS: INSULIN ASPART U SC SCH (11:09)
[2025-05-01] MEDS: INSULIN DEGLUDEC 200 UNIT/ML SC SCH (20:43)
[2025-05-01] MEDS ORDERED: INSULIN GLARGINE, HUMAN 1 UNIT/0.01 ML SQ SCH (21:00)
[2025-05-02 07:01] LABS: ALT/SGPT 15 U/L (<40); AST/SGOT 26 U/L (<32); Albumin 3.5 gm/dL (3.2-5.2); Albumin/Globulin Ratio 1.3 (1.0-2.3); Alkaline Phosphatase 51 U/L (39-117); Anion Gap 12.0 (8.0-16.0); Bilirubin,Direct 0.3 mg/dL (<0.3); Bilirubin,Total 0.8 mg/dL (0.1-1.0); Blood Urea Nitrogen 26 mg/dL (8-23); Calcium 8.0 mg/dL (8.6-10.4); Carbon Dioxide 16 mmol/L (22-30); Chloride 95 mmol/L (96-108); Globulin 2.6 gm/dL (2.2-3.7); Glucose 226 mg/dL (70-105); Phosphorous 3.3 mg/dL (2.5-4.5); Potassium 4.1 mmol/L (3.3-5.1); Sodium 123 mmol/L (133-145); Triglycerides 158 mg/dL (<150); Uric Acid 5.9 mg/dL (2.5-8.0)
[2025-05-02] MEDS: LEVOTHYROXINE 100 MCG TABLET PO SCH (07:34)
[2025-05-02 08:12] LABS: Basophils # (Auto) 0.01 K/mcL (0.00-0.30); Basophils % (Auto) 0.2 % (0.0-2.0); Eosinophils # (Auto) 0 K/mcL (0.00-0.70); Eosinophils % (Auto) 0 % (0.0-7.0); Hematocrit 31.9 % (34.1-44.9); Hemoglobin 11.0 g/dL (11.2-15.7); Lymphocytes # (Auto) 0.71 K/mcL (1.50-4.80); Lymphocytes % (Auto) 14.2 % (15.5-49.0); Mean Corpuscular HGB Conc 34.5 g/dL (31.0-36.0); Monocytes # (Auto) 0.64 K/mcL (0.10-0.90); Monocytes % (Auto) 12.8 % (1.0-12.0); Neutrophils % (Auto) 72.6 % (38.0-78.0); Platelet Count 170 K/mcL (140-440); RBC 3.75 M/mcL (3.59-5.38); WBC 5.0 K/mcL (4.5-11.0)
[2025-05-02] MEDS: LOPERAMIDE 2 MG CAPSULE PO PRN (09:45)
[2025-05-02] MEDS: SODIUM CHLORIDE 0.45% IV SCH (15:11)
[2025-05-02] MEDS: SODIUM BICARBONATE IV SCH (15:11)
[2025-05-03 06:22] LABS: Basophils # (Auto) 0.02 K/mcL (0.00-0.30); Basophils % (Auto) 0.4 % (0.0-2.0); Eosinophils # (Auto) 0.01 K/mcL (0.00-0.70); Eosinophils % (Auto) 0.2 % (0.0-7.0); Hematocrit 31.0 % (34.1-44.9); Hemoglobin 10.9 g/dL (11.2-15.7); Lymphocytes # (Auto) 0.69 K/mcL (1.50-4.80); Lymphocytes % (Auto) 15.2 % (15.5-49.0); Mean Corpuscular HGB Conc 35.2 g/dL (31.0-36.0); Monocytes # (Auto) 0.50 K/mcL (0.10-0.90); Monocytes % (Auto) 11.0 % (1.0-12.0); Neutrophils % (Auto) 73.0 % (38.0-78.0); Platelet Count 190 K/mcL (140-440); RBC 3.71 M/mcL (3.59-5.38); WBC 4.5 K/mcL (4.5-11.0)
[2025-05-03 06:36] LABS: Iron 33 ug/dL (37-145); TIBC Calculation 255 ug/dl (228-428); Transferrin % Saturation 13 % (15-50)
[2025-05-03 06:46] LABS: Ferritin 85.4 ng/mL (30.0-400.0)
[2025-05-03 07:16] LABS: ALT/SGPT 16 U/L (<40); AST/SGOT 28 U/L (<32); Albumin 3.4 gm/dL (3.2-5.2); Albumin/Globulin Ratio 1.4 (1.0-2.3); Alkaline Phosphatase 48 U/L (39-117); Anion Gap 11.0 (8.0-16.0); Bilirubin,Direct 0.2 mg/dL (<0.3); Bilirubin,Total 0.5 mg/dL (0.1-1.0); Blood Urea Nitrogen 23 mg/dL (8-23); Calcium 8.0 mg/dL (8.6-10.4); Carbon Dioxide 22 mmol/L (22-30); Chloride 102 mmol/L (96-108); Globulin 2.5 gm/dL (2.2-3.7); Glucose 174 mg/dL (70-105); Phosphorous 2.1 mg/dL (2.5-4.5); Potassium 4.0 mmol/L (3.3-5.1); Sodium 135 mmol/L (133-145); Triglycerides 204 mg/dL (<150); Uric Acid 5.4 mg/dL (2.5-8.0)
[2025-05-03] MEDS: SODIUM BICARBONATE IV SCH (13:19)
[2025-05-03] MEDS: SODIUM CHLORIDE 0.45% IV SCH (13:19)
[2025-05-03] MEDS: FERROUS SULFATE 325 MG TABLET PO SCH (17:03)
[2025-05-03] MEDS: ASCORBIC ACID 500 MG TABLET PO SCH (22:24)
[2025-05-04 02:19] LABS: Creatinine, Spot Urine 23.0 mg/dL (28.0-217.0); Pro:Crea Ratio 0.26 (<0.20); Protein, Spot Urine < 6 mg/dL
[2025-05-04 09:03] LABS: Basophils # (Auto) 0.03 K/mcL (0.00-0.30); Basophils % (Auto) 0.7 % (0.0-2.0); Eosinophils # (Auto) 0.01 K/mcL (0.00-0.70); Eosinophils % (Auto) 0.2 % (0.0-7.0); Hematocrit 31.0 % (34.1-44.9); Hemoglobin 10.7 g/dL (11.2-15.7); Lymphocytes # (Auto) 0.75 K/mcL (1.50-4.80); Lymphocytes % (Auto) 17.9 % (15.5-49.0); Mean Corpuscular HGB Conc 34.5 g/dL (31.0-36.0); Monocytes # (Auto) 0.51 K/mcL (0.10-0.90); Monocytes % (Auto) 12.2 % (1.0-12.0); Neutrophils % (Auto) 68.8 % (38.0-78.0); Platelet Count 199 K/mcL (140-440); RBC 3.63 M/mcL (3.59-5.38); WBC 4.2 K/mcL (4.5-11.0)
[2025-05-04 09:37] LABS: Albumin 3.5 gm/dL (3.2-5.2); Anion Gap 9.0 (8.0-16.0); Blood Urea Nitrogen 15 mg/dL (8-23); Calcium 8.0 mg/dL (8.6-10.4); Carbon Dioxide 26 mmol/L (22-30); Chloride 99 mmol/L (96-108); Glucose 203 mg/dL (70-105); Phosphorous 1.8 mg/dL (2.5-4.5); Potassium 3.8 mmol/L (3.3-5.1); Sodium 134 mmol/L (133-145)
[2025-05-04] MEDS: NEUTRA PHOS 1 PACKET PO SCH (11:22)
[2025-05-04] MEDS: INSULIN LISPRO 1 UNIT/0.01 ML UNIT SQ SCH (11:41)
[2025-05-04 12:46] VITALS: TEMP 98; O2SAT 96
[2025-05-04 14:39] LABS: POC Blood Urea Nitrogen 20.0 (6-20); POC CO2 19.0 (22-30); POC Calcium, Ionized 1.09 (1.16-1.32); POC Glucose, Random 141.0 (70-105)
[2025-05-07 18:41] LABS: Hepatitis B Surface Antigen Negative (Negative)
[2025-05-09 17:09] LABS: DNA (DS) ANTIBODY <1 IU/mL (0-9); SSA <0.2 AI (0.0-0.9); SSB <0.2 AI (0.0-0.9)
[2025-05-13 10:27] LABS: Myeloperoxidase ABS <1.0 AI; Proteinase-3-AB <1.0 AI
== END 2025-05-04 13:26 | disposition home or self-care (01) | DRG 643 ==
LOC: ED 18:41 → MEDSUR 21:51
PROVIDERS: ADMIT Internal Medicine; ATTEND Internal Medicine